=== PATIENT | female | born 1975 | race Caucasian/White ===

== ENCOUNTER 2016-06-20 10:25 | Emergency (ER) | payer MEDICAID, MEDICARE ==
[~2016-06-20] VITALS: Ht 157.5 cm; Wt 58.6 kg
[~2016-06-20 10:25] MED LIST: ALBU17AE22 INH; FLE10 PO; LORA-303 PO; OXYC-176 PO; OXYC30TA76 PO; ULTRAM50 MG PO
[2016-06-20 10:32] VITALS: BP 140/90; PULSE 86; RESP 14; O2SAT 100
[2016-06-20] MEDS ORDERED: Ondansetron 2 mg/mL 2 mL Inj IVPUSH ONE (10:50)
[2016-06-20] MEDS ORDERED: 0.9% Sodium Chloride 1,000 ML IV ONE (10:50)
--- NOTE | 2016-06-20 10:51 | ED.REPORT ---
HPI-Headache Date of Service Jun 20, 2016 ED Provider: Amando Snell MD Pt is a 41 year old female with a hx of migraines presenting to the ED complaining of a headache onset 8 days ago. Associated symptoms include nausea. Denies vomiting today, although she does report vomiting 3 days ago. Pt went to her appointment with Dr. Jensen today, and was told to come to the ED for the pain. She was seen in the [facility] ED 3 days ago and was given Compazine, Zofran , Reglan and Fioricet with no relief. Pt reports that she is currently being seen by a pumper hand due to blood abnormalities. Nursing Notes Stated Complaint: HEADACHE Chief Complaint: Headache Nursing Notes Reviewed: Yes Allergies: Coded Allergies: aspirin (Verified Allergy, Severe, GI BLEED, 01/19/09) Sulfa (Sulfonamide Antibiotics) (Verified Allergy, Unknown, 09/05/11) carrot (Verified Allergy, Unknown, 01/19/09) tomato (Verified Allergy, Unknown, 01/19/09) latex (Verified Adverse Reaction, Intermediate, rash sensitivity, 06/20/16) morphine (Verified Adverse Reaction, Unknown, vomiting, rash, 06/20/16) Uncoded Allergies: adhesive tape (Allergy, Severe, 05/15/08) red rash,blisters AVACADO (Allergy, Unknown, 01/01/07) PUMPKIN (Allergy, Unknown, 01/01/07) Scheduled Albuterol-Expunged Drug, Do Not Renew! (Albuterol-Expunged Drug, Do Not Renew!) 8.5 Gm Aero 8.5 GM INH PRN Omeprazole (Omeprazole) 40 Mg Capsule.dr 40 MG PO DAILY Scheduled PRN Lorazepam (Lorazepam) 1 Mg Tablet 1 MG PO TID PRN PRN For Anxiety Tizanidine (Tizanidine) 4 Mg Capsule 4 MG PO DIRECTED PRN PRN For Insomnia General Time Seen by MD: 10:43 Chief Complaint Headache Hx Obtained From: Patient Arrived By: Walk-in Sudden in Onset?: No Onset Occurred: More than a week ago... (8 days) Symptom Duration: Since onset Location: : Generalized Quality: Painful Severity: Current: Moderate Severity: Maximum: Severe Recent Healthcare: No recent hospitalization, Recent doctor visit Similar Sx Previous: Yes Past Medical History Past Medical History Migraines, asthma, seizures, GERD, heartburn, osteoarthritis, anxiety, Bipolar, depression, hyperthyroid Past Surgical History Emergency hysterectomy at 23 due to bleeding during delivery, laporoscopy x2, 8 knee sugeries, shoulder operations, carpal tunnel Smoking History Unknown if Ever Smoker Ambulatory Status Independent Review of Systems GI: Reports: Nausea, Denies: Vomiting Neurologic: Reports: Headache Complete sys rev & neg: except as marked. Physical Exam Initial Vital Signs Vital Signs (First) Date Time Temp Pulse Resp B/P Pulse Ox O2 Delivery O2 Flow Rate FiO2 06/20/16 10:32 36.3 86 14 140/90 100 Room Air Initial VS: Reviewed ENT: Mucous membranes moist, Conjunctiva normal, No scleral icterus Respiratory: Breath sounds normal, Clear to auscultation, No respiratory distress Cardiovascular: Regular rate & rhythm, Heart sounds normal, Intact distal pulses Abdomen / GI: No distention Skin: Warm, Dry, No cyanosis Psychiatric: Mood/affect normal, Behavior normal, Normal thought content General/Constitutional: Awake, Alert, No acute distress, Well appearing Head / Eyes: Atraumatic, Normocephalic, PERRL Neck: Atraumatic, Supple, No swelling Neurologic: Oriented X3, Speech NL, No motor deficits, No sensory deficits, CN II - XII intact, Cerebellar NL Interpretation & Diagnostics Lab Results Interpretation Test 06/20/16 11:00 Hold Purple Top Tube Received (Received) Hold Blue Top Tube Received (Received) Hold Urine Received (Received) Hold Ramona Top Tube Received (Received) Re-Eval/Medical Decision Med Decision/Clinical Course Pt given L of saline, Toradol 30, Compazine 10, Benadryl 5, Dexamethasone 10. Still symptomatic. Per Dr Jensen prior adverse response to tegretol or carbamazipne. Not vomiting, ambulatory and wants to go home. Re-Evaluation/Progress : Time of Eval: 14:50 )( Patient Status: Mild relief Re-Evaluation/Progress Note: Discussed plan for discharge. Pt understands and agrees. Consultation : Referral / Consult Name: Shawna Jensen MD Consulted With: Primary care physician Call Returned at: 10:57 Note: Discussed with Dr. Jensen. Did not instruct pt to come to ER today but recommends usual headache migraine cocktail. No Tegretol or Depakote she has reacted poorly to those in the past. Counseled Regarding: Diagnosis, Lab results, Need for follow-up, When/why to return to ED Discharge & Departure Impression: Primary Impression: Migraine Migraine type: without aura Intractability: intractable Disposition: Home Discharge Condition All VS Reviewed: Yes Condition: Improved Additional Instructions: rest in a dark room. continue previous home medications. start imitrex when able. Referrals: John Cruz MD (PCP) Shawna Jensen MD Attestation Portions of this note were transcribed by Marni Baxter. I, Dr. Snell personally performed the history, physical exam and medical decision-making; I reviewed and confirmed the accuracy of the information in the transcribed note. Signed by : Brandt Pollock, 06/20/2016 at 1532. copies to: Shawna Jensen MD; John Cruz MD, Donald L MD Jun 20, 2016 10:51 MARNI BAXTER Jun 20, 2016 11:00
[2016-06-20] MEDS ORDERED: TIZA4CAP8 PO (10:57)
[2016-06-20] MEDS ORDERED: LORA1TAB PO (10:57)
[2016-06-20] MEDS ORDERED: OMEP40CA36 PO (10:57)
[2016-06-20] MEDS ORDERED: ProchlorPERazine 5 mg/mL 2 mL Inj IVPUSH ONE (11:05)
[2016-06-20] MEDS ORDERED: Dexamethasone Inj 10 MG in 0.9% Sodium Chloride-Pha MIX 50 ML IV ONE (11:05)
[2016-06-20] MEDS ORDERED: Haloperidol 5 mg/mL Inj IVPUSH ONE (12:45)
[2016-06-20 14:26] VITALS: BP 138/84; PULSE 90; RESP 16; O2SAT 100
[2016-06-20 15:04] VITALS: BP 138/84; PULSE 90; RESP 16; O2SAT 100
== END 2016-06-20 15:17 | disposition home or self-care (01) ==
LOC: SED 10:25
DX: G43.019 Migraine without aura, intractable, without status migrainosus (principal); J45.909 Unspecified asthma, uncomplicated; K21.9 Gastro-esophageal reflux disease without esophagitis; E05.90 Thyrotoxicosis, unspecified without thyrotoxic crisis or storm; Z88.2 Allergy status to sulfonamides; Z88.5 Allergy status to narcotic agent; Z88.8 Allergy status to other drugs, medicaments and biological substances; Z91.040 Latex allergy status; Z91.018 Allergy to other foods
CPT/HCPCS: 96361; 96374; 96375; 99285; J0780; J1100; J1200; J1630; J1885; J2405; J7030

== ENCOUNTER 2016-06-27 20:00 | Emergency (ER) | payer MEDICAID, MEDICARE ==
[~2016-06-27] VITALS: Ht 157.5 cm; Wt 54.5 kg
[~2016-06-27 20:00] MED LIST changes: -FLE10 PO; -LORA-303 PO; +LORA1TAB PO; +OMEP40CA36 PO; -OXYC-176 PO; -OXYC30TA76 PO; +TIZA4CAP8 PO; -ULTRAM50 MG PO
[2016-06-27 20:08] VITALS: BP 119/81; PULSE 84; RESP 16; O2SAT 98
[2016-06-27 21:27] LABS: BASOPHILS % (AUTO) 0.2 % (0-3); MONOCYTES % (AUTO) 8.4 % (4-12); Mean Corpuscular Volume 85.5 fL (81-100); NEUTROPHILS % (AUTO) 64.1 % (40-74); Platelet Count 452 bil/L (150-400)
--- NOTE | 2016-06-27 21:55 | ED.REPORT ---
HPI-General Illness Date of Service Jun 27, 2016 ED Provider: Filiberto Jones MD Pt is a 41 year old female with a history of frequent migraines who presents to the ED with complaints of a headache, neck pain and chest discomfort. She reports that she has recently been diagnosed with a neck injury with a plan to get an EMG later this month. She additionally has a referral to see a neurologist to address he neck injury and frequent migraines. Pt states that she has been given new medication to keep her symptoms under control. She states that she sneezed several times today and then developed a headache. She reports that she took some breakthrough medication in an attempt to alleviate her symptoms. Her pain was unable to be alleviated and has worsened since its onset. She states that she is having chest discomfort, which she describes as a heaviness, that she attributes to anxiety. Pt reports that her neck pain and headache are more severe than she has never experienced in the past. She additionally reports dizziness (which she typically gets with her migraine medication, worse today), nausea, and vomiting, but denies numbness or weakness in her extremities, new trauma, or any other symptoms. Nursing Notes Stated Complaint: CHEST PAIN, NECK PAIN, MIGRAINE Chief Complaint: Headache Nursing Notes Reviewed: Yes Allergies: Coded Allergies: aspirin (Verified Allergy, Severe, GI BLEED, 01/19/09) Sulfa (Sulfonamide Antibiotics) (Verified Allergy, Unknown, 09/05/11) carrot (Verified Allergy, Unknown, 01/19/09) tomato (Verified Allergy, Unknown, 01/19/09) latex (Verified Adverse Reaction, Intermediate, rash sensitivity, 06/20/16) morphine (Verified Adverse Reaction, Unknown, vomiting, rash, 06/20/16) Uncoded Allergies: adhesive tape (Allergy, Severe, 05/15/08) red rash,blisters AVACADO (Allergy, Unknown, 01/01/07) PUMPKIN (Allergy, Unknown, 01/01/07) Scheduled Albuterol-Expunged Drug, Do Not Renew! (Albuterol-Expunged Drug, Do Not Renew!) 8.5 Gm Aero 8.5 GM INH PRN Omeprazole (Omeprazole) 40 Mg Capsule.dr 40 MG PO DAILY Scheduled PRN Lorazepam (Lorazepam) 1 Mg Tablet 1 MG PO TID PRN PRN For Anxiety Tizanidine (Tizanidine) 4 Mg Capsule 4 MG PO DIRECTED PRN PRN For Insomnia oxyCODONE-Acetaminophen 5-325 mg (oxyCODONE-Acetaminophen 5-325 mg) 1 Each Tablet 1 TAB PO Q4H PRN PRN For Pain General Time Seen by MD: 21:11 Chief Complaint Dizziness, Headache Hx Obtained From: Patient Arrived By: Walk-in Sudden in Onset?: Yes Onset Occurred: 5 - 8 hours ago Symptom Duration: Since onset Location: : Head: Neck Quality: Painful Severity: Current: Moderate Severity: Maximum: Severe Similar Sx Previous: Yes Past Medical History Past Medical History Migraines, asthma, seizures, GERD, heartburn, osteoarthritis, anxiety, Bipolar, depression, hyperthyroid Past Surgical History Emergency hysterectomy at 23 due to bleeding during delivery, laporoscopy x2, 8 knee sugeries, shoulder operations, carpal tunnel Smoking History Current Every Day Smoker Ambulatory Status Independent Review of Systems Full Review of Systems Constitutional: Reports: Weakness - generalized, Denies: Chills, Fever Respiratory: Reports: Shortness of breath, Denies: Non-productive cough, Wheezing Cardiovascular: Reports: Chest pain, Denies: Syncope GI: Reports: Nausea, Vomiting, Denies: Abdominal pain, Constipation, Diarrhea Female: Denies: Dysuria, Flank pain Musculoskeletal: Reports: Neck pain, Denies: Back pain, Extremity pain Skin: Denies Diaphoresis Neurologic: Reports: Dizziness, Headache, Denies: Syncope Psychiatric: Reports: Anxiety Complete sys rev & neg: except as marked. Physical Exam Vital Signs Vital Signs Date Time Temp Pulse Resp B/P Pulse Ox O2 Delivery O2 Flow Rate FiO2 06/28/16 00:10 36.8 88 18 136/78 98 Room Air 06/27/16 20:08 36.8 84 16 119/81 98 Room Air Initial VS: Reviewed General/Constitutional: Well-developed, Well-nourished Head / Eyes: Atraumatic, Normocephalic, PERRL ENT: Mucous membranes moist, Conjunctiva normal, No scleral icterus Neck: Supple, Non-tender, Full range of motion Respiratory: Breath sounds normal, Clear to auscultation, No respiratory distress Cardiovascular: Regular rate & rhythm, Heart sounds normal, Intact distal pulses Abdomen / GI: Soft, Non-tender, No guarding, No rebound, No distention Skin: Warm, Dry, No cyanosis Psychiatric: Mood/affect normal, Behavior normal, Normal thought content Neurologic: Oriented X3, Speech NL, No motor deficits, No sensory deficits, CN II - XII intact Interpretation & Diagnostics Lab Results Interpretation Result Diagram: 06/27/16211906/27/162119 Test 06/27/16 21:20 White Blood Count 8.4th/mm3 (3.8-10.1) Red Blood Count 4.77mil/mm3 (3.90-5.20) Hemoglobin 14.3g/dL (12.0-15.6) Hematocrit 40.8% (35.0-46.0) Mean Corpuscular Volume 85.5fL (81-100) Mean Corpuscular Hemoglobin 30.0pg (27.0-35.0) Mean Corpuscular Hemoglobin Concent 35.0% (32.0-37.0) Red Cell Distribution Width 14.0% (12.3-15.4) Platelet Count 452bil/L (150-400) Neutrophils (%) (Auto) 64.1% (40-74) Lymphocytes (%) (Auto) 25.1% (14-46) Monocytes (%) (Auto) 8.4% (4-12) Eosinophils (%) (Auto) 2.0% (0-5) Basophils (%) (Auto) 0.2% (0-3) Sodium Level 134mEq/L (134-144) Potassium Level 3.6mEq/L (3.5-5.2) Chloride Level 97mEq/L (97-108) Carbon Dioxide Level 21mmol/L (18-29) Blood Urea Nitrogen 11mg/dL (6-24) Creatinine 0.56mg/dL (0.57-1.00) Estimat Glomerular Filtration Rate 170mL/min (>59) Glucose Level 93mg/dL (60-99) Calcium Level 9.7mg/dL (8.5-10.1) Troponin T 0.010ug/L (0.0-0.011) ECG Interpretation ECG Interpretation: SR- 79 Time: 21:06 Normal ECG Interpretation: Normal rate, No acute ischemic changes, Normal axis Re-Eval/Medical Decision Med Decision/Clinical Course 41-year-old female with long history of migraines and neck pain presenting complaining of her typical migraine and neck pain. She has no neurological deficits. Her labs are unremarkable. Headache improved and neck pain improved with meds. Recommend home medications prn pain. Follow-up primary doctor tomorrow. Source of Hx: Old records Time of Eval: 23:52 Re-Evaluation/Progress Note: Pt is rechecked and informed of her diagnosis and the plan to discharge her at this time. She understands and agrees, all questions are addressed. Counseled Regarding: Diagnosis, Lab results, Need for follow-up, When/why to return to ED Discharge & Departure Primary Impression: Migraine Migraine type: unspecified Status migrainosus presence: without status migrainosus Intractability: intractable Qualified Code: G43.919 - Migraine, unspecified, intractable, without status migrainosus Disposition: Home Discharge Condition All VS Reviewed: Yes Condition: Stable Patient Instructions: Migraine Headache (ED) Additional Instructions: Thank you for seeking care in the emergency department today. I suggest that you keep your appointments that you have scheduled with the neurologist. Follow up with your primary care provider as planned. Do not drink alcohol or drive while taking the Percocet, as it contains a narcotic. Return to the emergency department if your symptoms return or if you experience any new or worsening symptoms. Referrals: John Cruz MD (PCP) Shawna Jensen MD (Family) Brandt Attestation Portions of this note were transcribed by Dr. Saucedo. I, Isa Colbert personally performed the history, physical exam and medical decision-making; I reviewed and confirmed the accuracy of the information in the transcribed note. Signed by: Brandt Hooks, 06/27 [Time] copies to: Shawna Jensen MD; John Cruz MD, Ben M MD Jun 27, 2016 21:55 NACHO COLBERT Jun 27, 2016 22:02
[2016-06-27] MEDS ORDERED: 0.9% Sodium Chloride 1,000 ML IV ONE (22:04)
[2016-06-27] MEDS ORDERED: MetoCLOpramide 5 mg/mL 2 mL Inj IVPUSH ONE (22:05)
[2016-06-27] MEDS ORDERED: OXYC1TAB24 PO (23:55)
[2016-06-27] MEDS ORDERED: oxyCODONE-Acetamin 10-325 mg Tablet PO ONE (23:55)
[2016-06-28 00:10] VITALS: BP 136/78; PULSE 88; RESP 18; O2SAT 98
== END 2016-06-28 00:13 | disposition home or self-care (01) ==
LOC: SED 20:00
DX: G43.919 Migraine, unspecified, intractable, without status migrainosus (principal); M54.2 Cervicalgia; R07.89 Other chest pain; R06.7 Sneezing; F41.9 Anxiety disorder, unspecified; R42 Dizziness and giddiness; J45.909 Unspecified asthma, uncomplicated; K21.9 Gastro-esophageal reflux disease without esophagitis; F31.9 Bipolar disorder, unspecified; E05.90 Thyrotoxicosis, unspecified without thyrotoxic crisis or storm; F17.200 Nicotine dependence, unspecified, uncomplicated; Z88.2 Allergy status to sulfonamides; Z88.5 Allergy status to narcotic agent; Z88.8 Allergy status to other drugs, medicaments and biological substances; Z91.02 Food additives allergy status; Z91.040 Latex allergy status
CPT/HCPCS: 36415; 80048; 84484; 85025; 93005; 96361; 96374; 96375; 99285; J1885; J2060; J2765; J7030